=== PATIENT | female | born 1965 | race African-American/Black ===

== ENCOUNTER 2018-12-03 15:13 | Emergency (ER) | payer OTHER ==
[~2018-12-03] VITALS: Ht 157.5 cm; Wt 70.3 kg
[~2018-12-03 15:13] MED LIST: ATORVASTATIN CA40 MG PO; CYCLOBENZAPRINE5 MG PO; HYDROCHLOROTH12.5 M1 PO; LEVOTHYROXINE 0.1 MG PO; LOPRESSOR50 MG PO; METFORMIN HCL500 MG PO; NORCO 5-325 TA1 EACH PO; NORVASC5 MG PO; VASOTEC10 MG PO
[2018-12-03 16:30] VITALS: BP 140/81
[2018-12-03] MEDS ORDERED: BENADRYL25 MG PO (16:32)
[2018-12-03] MEDS ORDERED: FAMOTIDINE 10 M10 MG PO (16:32)
[2018-12-03] MEDS ORDERED: PREDNISONE 20 M20 MG PO (16:32)
== END 2018-12-03 16:30 | disposition home or self-care (01) ==
LOC: ER 15:13
DX: L25.9 Unspecified contact dermatitis, unspecified cause (principal); I10 Essential (primary) hypertension; E11.9 Type 2 diabetes mellitus without complications; E78.00 Pure hypercholesterolemia, unspecified; E03.9 Hypothyroidism, unspecified; E78.5 Hyperlipidemia, unspecified; Z88.2 Allergy status to sulfonamides; Z88.5 Allergy status to narcotic agent; Z88.1 Allergy status to other antibiotic agents